=== PATIENT | female | born 1990 | race Two or more races ===

== ENCOUNTER 2019-03-21 18:22 | Emergency (ER) | payer SELFPAY | END 2019-03-21 18:30 | disposition left against medical advice (07) | LOC: EMS 18:24 | DX: R51 Headache (principal); Z53.21 Procedure and treatment not carried out due to patient leaving prior to being seen by health care provider ==

== ENCOUNTER 2019-03-21 20:54 | Emergency (ER) | payer MEDICAID, OTHER ==
[~2019-03-21] VITALS: Ht 149.9 cm; Wt 65.9 kg
[2019-03-22 02:14] VITALS: BP 147/94
[2019-03-22] MEDS ORDERED: DiphenhydrAMINE HCL 50 MG/ML VIAL IVP ONE (04:00)
[2019-03-22] MEDS ORDERED: ONDANSETRON HCL 4 MG TABLET PO ONE (04:00)
[2019-03-22] MEDS ORDERED: SODIUM CHLORIDE 0.9% 1,000 ML IV ONE (04:00)
[2019-03-22] MEDS ORDERED: KETOROLAC TROMETHAMINE 30 MG/ML VIAL IVP ONE (04:00)
[2019-03-22] MEDS ORDERED: METOCLOPRAMIDE HCL 5 MG/ML 2 ML VIAL IVP ONE (04:00)
[2019-03-22] MEDS ORDERED: ACETAMINOPHEN 500 MG TABLET PO ONE (04:00)
[2019-03-22 04:14] LABS: BASOPHILS % (AUTO) 0.8 % (0.0-2.0); HEMATOCRIT 39.8 % (36-46); HEMOGLOBIN 13.3 g/dL (12.0-16.0); LYMPHOCYTES % (AUTO) 48.7 % (22.0-44.0); MEAN CORPUSCULAR HGB CONC 33.4 G/dL (31.0-37.0); MEAN CORPUSCULAR VOLUME 87 fL (80-100); MONOCYTES # (AUTO) 0.7 K/uL (0.1-1.0); MONOCYTES % (AUTO) 7.9 % (2.0-9.0); NEUTROPHILS # (AUTO) 3.2 K/uL (1.8-7.7); NEUTROPHILS % (AUTO) 38.6 % (40.0-70.0); PLATELET COUNT (AUTO) 350 K/uL (150-450); RED BLOOD CELL COUNT(AUTO) 4.58 MIL/uL (4.00-5.20); RED CELL DISTRIBUTION WIDTH 13.1 % (11.5-14.5)
[2019-03-22 04:24] LABS: ANION GAP 6 mmol/L (8-16); CALCIUM, TOTAL 8.4 mg/dL (8.8-10.5); CARBON DIOXIDE 30 mmol/L (22-29); CHLORIDE 102 mmol/L (98-107); CREATININE 0.71 mg/dL (0.60-1.30); GLOMERULAR FILTR. RATE CALC > 60 mL/min (>60); GLUCOSE,RANDOM 91 mg/dL (70-110); POTASSIUM 3.2 mmol/L (3.5-5.1); SODIUM SERUM 138 mmol/L (136-145); UREA NITROGEN, BLOOD 7 mg/dL (7-18)
[2019-03-22 04:33] LABS: ALANINE AMINOTRANSFERASE 21 U/L (12-78); ALBUMIN 3.7 g/dL (3.4-5.0); ALKALINE PHOSPHATASE 70 U/L (46-116); ASPARTATE AMINOTRANSFERASE 16 U/L (15-37); BILIRUBIN,TOTAL 0.3 mg/dL (0.1-1.0); HCG,QUANTITATIVE < 1 mIU/mL (0-6); TOTAL PROTEIN, SERUM 6.8 g/dL (6.4-8.2)
== END 2019-03-22 04:30 | disposition left against medical advice (07) ==
LOC: EMS 20:55
DX: G43.909 Migraine, unspecified, not intractable, without status migrainosus (principal); F17.210 Nicotine dependence, cigarettes, uncomplicated; Z90.89 Acquired absence of other organs
CPT/HCPCS: 36415; 80053; 84702; 85025; 96374; 96375; 99283; 99406; J1200; J1885; J2765; J7030; Q0162

== ENCOUNTER 2019-05-17 13:19 | Inpatient (IN) | payer MEDICAID, OTHER ==
[~2019-05-17] VITALS: Ht 149.9 cm; Wt 59.9 kg
[2019-05-17] MEDS ORDERED: CHOL10002 PO (13:25)
[2019-05-17 14:43] LABS: BASOPHILS % (AUTO) 0.7 % (0.0-2.0); EOSINOPHILS % (AUTO) 4.8 % (1.0-6.0); HEMATOCRIT 38.7 % (36-46); HEMOGLOBIN 12.8 g/dL (12.0-16.0); LYMPHOCYTES # (AUTO) 3.3 K/uL (1.0-4.8); MEAN CORPUSCULAR HEMOGLOBIN 29.2 pg (26.0-34.0); MEAN CORPUSCULAR HGB CONC 33.2 G/dL (31.0-37.0); MEAN CORPUSCULAR VOLUME 88 fL (80-100); MONOCYTES # (AUTO) 0.7 K/uL (0.1-1.0); MONOCYTES % (AUTO) 8.5 % (2.0-9.0); NEUTROPHILS # (AUTO) 4.2 K/uL (1.8-7.7); PLATELET COUNT (AUTO) 326 K/uL (150-450); RED CELL DISTRIBUTION WIDTH 13.7 % (11.5-14.5)
[2019-05-17 14:53] LABS: ANION GAP 6 mmol/L (8-16); CALCIUM, TOTAL 8.6 mg/dL (8.8-10.5); CARBON DIOXIDE 28 mmol/L (22-29); CHLORIDE 104 mmol/L (98-107); CREATININE 0.69 mg/dL (0.60-1.30); GLOMERULAR FILTR. RATE CALC > 60 mL/min (>60); GLUCOSE,RANDOM 111 mg/dL (70-110); POTASSIUM 3.6 mmol/L (3.5-5.1); SODIUM SERUM 138 mmol/L (136-145); UREA NITROGEN, BLOOD 14 mg/dL (7-18)
[2019-05-17 15:06] LABS: ALANINE AMINOTRANSFERASE 25 U/L (12-78); ALBUMIN 3.6 g/dL (3.4-5.0); ALKALINE PHOSPHATASE 65 U/L (46-116); ASPARTATE AMINOTRANSFERASE 15 U/L (15-37); BILIRUBIN,TOTAL 0.2 mg/dL (0.1-1.0); HCG,QUANTITATIVE < 1 mIU/mL (0-6); TOTAL PROTEIN, SERUM 6.9 g/dL (6.4-8.2)
[2019-05-17] MEDS ORDERED: PROMETHAZINE HCL 25 MG TABLET PO PRN (15:30)
[2019-05-17] MEDS ORDERED: MAGNESIUM HYDROXIDE SUSPENSION 30 ML UDCUP PO PRN (15:30)
[2019-05-17] MEDS ORDERED: TUBERCULIN, PURIFIED PROTEIN DERIVATIVE 5 TU/0.1 ML SYRINGE ID ONE (15:30)
[2019-05-17] MEDS ORDERED: ACETAMINOPHEN 325 MG TABLET PO PRN (15:30)
[2019-05-17] MEDS ORDERED: HydrOXYzine PAMOATE 50 MG CAPSULE PO PRN (15:30)
[2019-05-17] MEDS ORDERED: GuaiFENesin/D-METHORPHAN [SUGAR-FREE] 200-20MG/10 ML SYRUP UDCUP PO PRN (15:30)
[2019-05-17] MEDS ORDERED: MAG HYDROX/AL HYDROX/SIMETH ES 30 ML SUSPENSION UDCUP PO PRN (15:30)
[2019-05-17] MEDS ORDERED: QUEtiapine FUMARATE 100 MG TABLET PO PRN (15:30)
[2019-05-17] MEDS ORDERED: ZOLPIDEM TARTRATE 10 MG TABLET PO PRN (15:30)
[2019-05-17] MEDS ORDERED: LOPERAMIDE HCL 2 MG CAPSULE PO PRN (15:30)
[2019-05-17 16:17] LABS: AMPHET/METH SCREEN,URINE NEGATIVE (NEGATIVE); BARBITURATE SCREEN, URINE NEGATIVE (NEGATIVE); BENZODIAZEPINES SCREEN,URINE NEGATIVE (NEGATIVE); CANNABINOID SCREEN,URINE NEGATIVE (NEGATIVE); COCAINE SCREEN,URINE NEGATIVE (NEGATIVE); METHADONE SCREEN, URINE NEGATIVE (NEGATIVE); OPIATE SCREEN,URINE NEGATIVE (NEGATIVE)
[2019-05-17 16:18] LABS: PHENCYCLIDINE SCREEN,URINE NEGATIVE (NEGATIVE)
[2019-05-17] MEDS: THIAMINE HCL 100 MG TABLET PO SCH (18:02)
[2019-05-17 21:01] VITALS: BP 147/82
[2019-05-17] MEDS: PRAZOSIN HCL 1 MG CAPSULE PO SCH (21:09)
[2019-05-17] MEDS ORDERED: INFLUENZA VIRUS VACCINE QVS 2019-20 (3YR+)/PF 60 MCG/0.5 ML SYRINGE IM ONE (21:45)
[2019-05-18 07:03] VITALS: BP 116/65
[2019-05-18 07:25] LABS: BASOPHILS % (AUTO) 0.9 % (0.0-2.0); HEMATOCRIT 36.5 % (36-46); HEMOGLOBIN 12.3 g/dL (12.0-16.0); LYMPHOCYTES % (AUTO) 50.4 % (22.0-44.0); MEAN CORPUSCULAR HEMOGLOBIN 29.5 pg (26.0-34.0); MEAN CORPUSCULAR HGB CONC 33.7 G/dL (31.0-37.0); MEAN CORPUSCULAR VOLUME 88 fL (80-100); MONOCYTES # (AUTO) 0.5 K/uL (0.1-1.0); MONOCYTES % (AUTO) 8.8 % (2.0-9.0); NEUTROPHILS # (AUTO) 2.1 K/uL (1.8-7.7); NEUTROPHILS % (AUTO) 34.9 % (40.0-70.0); PLATELET COUNT (AUTO) 311 K/uL (150-450); RED BLOOD CELL COUNT(AUTO) 4.17 MIL/uL (4.00-5.20); RED CELL DISTRIBUTION WIDTH 13.3 % (11.5-14.5)
[2019-05-18 07:47] LABS: ALANINE AMINOTRANSFERASE 24 U/L (12-78); ALBUMIN 3.3 g/dL (3.4-5.0); ALKALINE PHOSPHATASE 58 U/L (46-116); ANION GAP 5 mmol/L (8-16); ASPARTATE AMINOTRANSFERASE 14 U/L (15-37); BILIRUBIN,TOTAL 0.4 mg/dL (0.1-1.0); CALCIUM, TOTAL 8.3 mg/dL (8.8-10.5); CARBON DIOXIDE 27 mmol/L (22-29); CHLORIDE 105 mmol/L (98-107); CHOL/HDL RATIO 3.1 (3.9-5.7); CHOLESTEROL 183 mg/dL (131-200); CREATININE 0.72 mg/dL (0.60-1.30); FREE T4 (FREE THYROXINE) 1.14 ng/dL (0.76-1.46); GLOMERULAR FILTR. RATE CALC > 60 mL/min (>60); GLUCOSE,RANDOM 91 mg/dL (70-110); HDL CHOLESTEROL 59 mg/dL (40-60); LDL CHOL (CALC.) 116 mg/dL (0-130); POTASSIUM 3.8 mmol/L (3.5-5.1); SODIUM SERUM 137 mmol/L (136-145); THYROID STIMULATING HORMONE 1.11 uIU/mL (0.36-3.74); TOTAL PROTEIN, SERUM 6.3 g/dL (6.4-8.2); TRIGLYCERIDES 41 mg/dL (15-150); UREA NITROGEN, BLOOD 10 mg/dL (7-18)
[2019-05-18 07:53] LABS: HEMOGLOBIN A1C 5.7 % (3.8-5.6)
[2019-05-18] MEDS: MULTIVITAMINS WITH MINERALS, THERAPEUTIC TABLET PO SCH (08:19)
[2019-05-18] MEDS: FLUoxetine HCL 20 MG CAPSULE PO SCH (08:19)
[2019-05-18] MEDS: THIAMINE HCL 100 MG TABLET PO SCH ×2 (08:19→16:38)
[2019-05-18] MEDS: FOLIC ACID 1 MG TABLET PO SCH (08:19)
[2019-05-18 08:56] VITALS: BP 130/68
[2019-05-18] MEDS: LORazepam 2 MG TABLET PO PRN (09:03)
[2019-05-18] MEDS: NALTREXONE HCL 50 MG TABLET PO SCH (09:29)
[2019-05-18] MEDS: CHOLECALCIFEROL (VIT D3) 1,000 UNITS TABLET PO SCH (13:01)
[2019-05-18 16:41] VITALS: BP 127/72
[2019-05-18 21:23] VITALS: BP 130/82
[2019-05-18] MEDS: PRAZOSIN HCL 1 MG CAPSULE PO SCH (21:23)
[2019-05-19 03:29] VITALS: BP 124/70
[2019-05-19] MEDS: NALTREXONE HCL 50 MG TABLET PO SCH (09:04)
[2019-05-19] MEDS: FLUoxetine HCL 20 MG CAPSULE PO SCH (09:04)
[2019-05-19] MEDS: FOLIC ACID 1 MG TABLET PO SCH (09:04)
[2019-05-19] MEDS: THIAMINE HCL 100 MG TABLET PO SCH ×2 (09:04→16:34)
[2019-05-19] MEDS: CHOLECALCIFEROL (VIT D3) 1,000 UNITS TABLET PO SCH (09:04)
[2019-05-19] MEDS: GABAPENTIN 100 MG CAPSULE PO SCH ×3 (09:04→16:33)
[2019-05-19] MEDS: MULTIVITAMINS WITH MINERALS, THERAPEUTIC TABLET PO SCH (09:04)
[2019-05-19 09:48] VITALS: BP 132/74
[2019-05-19] MEDS: LORazepam 2 MG TABLET PO PRN (09:53)
[2019-05-19] MEDS ORDERED: GABA-529 PO (14:28)
[2019-05-19] MEDS ORDERED: PRAZ1 PO (14:28)
[2019-05-19] MEDS ORDERED: NALT50TA PO (14:28)
[2019-05-19] MEDS ORDERED: FLUO-191 PO (14:28)
[2019-05-19 17:49] VITALS: BP 138/83
[2019-05-19] MEDS: PRAZOSIN HCL 1 MG CAPSULE PO SCH (20:58)
[2019-05-20] MEDS: GABAPENTIN 100 MG CAPSULE PO SCH ×3 (08:47→16:36)
[2019-05-20] MEDS: NALTREXONE HCL 50 MG TABLET PO SCH (08:47)
[2019-05-20] MEDS: FLUoxetine HCL 20 MG CAPSULE PO SCH (08:47)
[2019-05-20] MEDS: CHOLECALCIFEROL (VIT D3) 1,000 UNITS TABLET PO SCH (08:47)
[2019-05-20] MEDS: MULTIVITAMINS WITH MINERALS, THERAPEUTIC TABLET PO SCH (08:47)
[2019-05-20] MEDS: FOLIC ACID 1 MG TABLET PO SCH (08:48)
[2019-05-20] MEDS: THIAMINE HCL 100 MG TABLET PO SCH ×2 (08:49→16:36)
[2019-05-20 09:54] VITALS: BP 132/91
[2019-05-20 16:00] VITALS: BP 129/85
[2019-05-20] MEDS ORDERED: GABAPENTIN 300 MG CAPSULE PO SCH (17:00)
[2019-05-20 21:10] VITALS: BP 127/67
[2019-05-20] MEDS: PRAZOSIN HCL 1 MG CAPSULE PO SCH (21:11)
[2019-05-21 04:53] VITALS: BP 122/77
[2019-05-21] MEDS: FOLIC ACID 1 MG TABLET PO SCH (08:41)
[2019-05-21] MEDS: CHOLECALCIFEROL (VIT D3) 1,000 UNITS TABLET PO SCH (08:41)
[2019-05-21] MEDS: THIAMINE HCL 100 MG TABLET PO SCH (08:41)
[2019-05-21] MEDS: MULTIVITAMINS WITH MINERALS, THERAPEUTIC TABLET PO SCH (08:41)
[2019-05-21] MEDS: NALTREXONE HCL 50 MG TABLET PO SCH (08:41)
[2019-05-21] MEDS ORDERED: GABAPENTIN 300 MG CAPSULE PO SCH (09:00)
[2019-05-21] MEDS ORDERED: FLUoxetine HCL 20 MG CAPSULE PO SCH (09:00)
== END 2019-05-21 10:00 | disposition home or self-care (01) | DRG 885 ==
LOC: EMS 13:21 → 3EI 16:29 → 3EC 20:45 → 3EI 05-20 21:15
PROVIDERS: ADMIT Psychiatry & Neurology Psychiatry; ATTEND Psychiatry & Neurology Psychiatry
DX: F33.2 Major depressive disorder, recurrent severe without psychotic features (principal); R45.851 Suicidal ideations; G43.909 Migraine, unspecified, not intractable, without status migrainosus; F17.210 Nicotine dependence, cigarettes, uncomplicated; F43.10 Post-traumatic stress disorder, unspecified; E55.9 Vitamin D deficiency, unspecified; F11.90 Opioid use, unspecified, uncomplicated; F19.10 Other psychoactive substance abuse, uncomplicated; X58.XXXA Exposure to other specified factors, initial encounter; Z59.0 Homelessness; Z91.19 Patient's noncompliance with other medical treatment and regimen; Z90.49 Acquired absence of other specified parts of digestive tract; Z98.84 Bariatric surgery status; Z23 Encounter for immunization
CPT/HCPCS: 82306; 83036; 84439; 84443; 86592; 90686; 93005; G0480

== ENCOUNTER 2020-09-28 21:26 | Inpatient (IN) | payer MEDICAID, OTHER ==
[~2020-09-28] VITALS: Ht 149.9 cm; Wt 70.8 kg
[~2020-09-28 21:26] MED LIST: CHOL10002 PO; FLUO-191 PO; GABA-529 PO; NALT50TA PO; PRAZ1 PO
[2020-09-29 00:34] LABS: EOSINOPHILS % (AUTO) 0.8 % (1.0-6.0); HEMATOCRIT 40.5 % (36-46); HEMOGLOBIN 13.4 g/dL (12.0-16.0); LYMPHOCYTES # (AUTO) 3.5 K/uL (1.0-4.8); LYMPHOCYTES % (AUTO) 34.5 % (22.0-44.0); MEAN CORPUSCULAR HEMOGLOBIN 27.3 pg (26.0-34.0); MEAN CORPUSCULAR VOLUME 83 fL (80-100); MONOCYTES % (AUTO) 9.3 % (2.0-9.0); NEUTROPHILS # (AUTO) 5.6 K/uL (1.8-7.7); NEUTROPHILS % (AUTO) 54.4 % (40.0-70.0); PLATELET COUNT (AUTO) 372 K/uL (150-450); RED CELL DISTRIBUTION WIDTH 15.3 % (11.5-14.5)
[2020-09-29 00:44] LABS: ANION GAP 11 mmol/L (8-16); CARBON DIOXIDE 23 mmol/L (22-29); CHLORIDE 104 mmol/L (98-107); CREATININE 0.59 mg/dL (0.60-1.30); GLOMERULAR FILTR. RATE CALC > 60 mL/min (>60); GLUCOSE,RANDOM 97 mg/dL (70-110); POTASSIUM 3.5 mmol/L (3.5-5.1); SODIUM SERUM 138 mmol/L (136-145); UREA NITROGEN, BLOOD 10 mg/dL (7-18)
[2020-09-29 00:48] LABS: COVID AG,FIA SOURCE NASOPHARYNGEAL
[2020-09-29 00:51] LABS: ALANINE AMINOTRANSFERASE 39 U/L (12-78); ALBUMIN 3.7 g/dL (3.4-5.0); ALKALINE PHOSPHATASE 96 U/L (46-116); ASPARTATE AMINOTRANSFERASE 26 U/L (15-37); BILIRUBIN,TOTAL 0.6 mg/dL (0.1-1.0); TOTAL PROTEIN, SERUM 8.2 g/dL (6.4-8.2)
[2020-09-29] MEDS ORDERED: PNEUMOCOCCAL VACCINE POLYVALENT 0.5 ML VIAL [PPSV23] IM. ONE (03:30)
[2020-09-29 03:56] VITALS: BP 158/96
[2020-09-29] MEDS: LORazepam 2 MG TABLET PO PRN ×3 (04:06→18:49)
[2020-09-29] MEDS: HALOPERIDOL 5 MG TABLET PO PRN ×2 (04:06→18:49)
[2020-09-29] MEDS ORDERED: LOPERAMIDE HCL 2 MG CAPSULE PO PRN (07:15)
[2020-09-29] MEDS ORDERED: IBUPROFEN 400 MG TABLET PO PRN (07:15)
[2020-09-29] MEDS ORDERED: DOCUSATE SODIUM 100 MG CAPSULE PO PRN (07:15)
[2020-09-29] MEDS ORDERED: CloNIDine HCL 0.1 MG TABLET PO PRN (07:15)
[2020-09-29] MEDS ORDERED: PETROLATUM,WHITE 28 GM JELLY TP PRN (07:15)
[2020-09-29] MEDS ORDERED: GuaiFENesin/D-METHORPHAN [SUGAR-FREE] 200-20MG/10 ML SYRUP UDCUP PO PRN (07:15)
[2020-09-29] MEDS ORDERED: MAGNESIUM HYDROXIDE SUSPENSION 30 ML UDCUP PO PRN (07:15)
[2020-09-29] MEDS ORDERED: ACETAMINOPHEN 325 MG TABLET PO PRN (07:15)
[2020-09-29] MEDS ORDERED: ONDANSETRON HCL 4 MG TABLET PO PRN (07:15)
[2020-09-29] MEDS ORDERED: MAG HYDROX/AL HYDROX/SIMETH ES 30 ML SUSPENSION UDCUP PO PRN (07:15)
[2020-09-29 08:30] VITALS: BP 150/97
[2020-09-29] MEDS: AmLODIPine BESYLATE 5 MG TABLET PO SCH (08:34)
[2020-09-29] MEDS: CHOLECALCIFEROL (VIT D3) 1,000 UNITS [25 MCG] TABLET PO SCH (08:34)
[2020-09-29] MEDS: GABAPENTIN 100 MG CAPSULE PO SCH (17:12)
[2020-09-29] MEDS: NICOTINE 14 MG/24 HOUR PATCH TD PRN (18:49)
[2020-09-29] MEDS: ZOLPIDEM TARTRATE 10 MG TABLET PO PRN (20:39)
[2020-09-30 00:05] VITALS: BP 141/93
[2020-09-30] MEDS: LORazepam 2 MG TABLET PO PRN ×3 (01:21→14:28)
[2020-09-30] MEDS: FLUoxetine HCL 20 MG CAPSULE PO SCH (09:08)
[2020-09-30] MEDS: GABAPENTIN 100 MG CAPSULE PO SCH (09:08)
[2020-09-30] MEDS: CHOLECALCIFEROL (VIT D3) 1,000 UNITS [25 MCG] TABLET PO SCH (09:08)
[2020-09-30] MEDS: AmLODIPine BESYLATE 5 MG TABLET PO SCH (09:08)
[2020-09-30 10:23] VITALS: BP 112/77
[2020-09-30] MEDS: ALBUTEROL SULFATE HFA 90 MCG/PUFF 8 GM INHALER IH PRN (14:28)
[2020-09-30 16:06] VITALS: BP 129/76
[2020-09-30] MEDS: GABAPENTIN 300 MG CAPSULE PO SCH (16:50)
[2020-09-30] MEDS: ZOLPIDEM TARTRATE 10 MG TABLET PO PRN (21:31)
[2020-10-01 00:06] VITALS: BP 140/83
[2020-10-01] MEDS: LORazepam 2 MG TABLET PO PRN ×3 (04:21→20:35)
[2020-10-01] MEDS: CHOLECALCIFEROL (VIT D3) 1,000 UNITS [25 MCG] TABLET PO SCH (08:17)
[2020-10-01] MEDS: FLUoxetine HCL 20 MG CAPSULE PO SCH (08:17)
[2020-10-01] MEDS: GABAPENTIN 300 MG CAPSULE PO SCH ×2 (08:17→16:39)
[2020-10-01] MEDS: AmLODIPine BESYLATE 5 MG TABLET PO SCH (08:17)
[2020-10-01 08:18] VITALS: BP 136/82
[2020-10-01] MEDS: NICOTINE 14 MG/24 HOUR PATCH TD PRN (12:54)
[2020-10-01 16:05] VITALS: BP 135/82
[2020-10-02 00:07] VITALS: BP 106/62
[2020-10-02] MEDS: GABAPENTIN 300 MG CAPSULE PO SCH (08:32)
[2020-10-02] MEDS: LORazepam 2 MG TABLET PO PRN (08:33)
[2020-10-02] MEDS: CHOLECALCIFEROL (VIT D3) 1,000 UNITS [25 MCG] TABLET PO SCH (08:33)
[2020-10-02] MEDS: AmLODIPine BESYLATE 5 MG TABLET PO SCH (08:33)
[2020-10-02] MEDS: NICOTINE 14 MG/24 HOUR PATCH TD PRN (08:34)
[2020-10-02] MEDS: ALBUTEROL SULFATE HFA 90 MCG/PUFF 8 GM INHALER IH PRN (08:35)
[2020-10-02 08:47] VITALS: BP 132/78
[2020-10-02] MEDS ORDERED: FLUoxetine HCL 20 MG CAPSULE PO SCH (09:00)
[2020-10-02] MEDS ORDERED: FLUO20CA36 PO (10:45)
[2020-10-02] MEDS ORDERED: GABA-1181 PO (10:45)
[2020-10-02] MEDS ORDERED: AMLO-257 PO (10:46)
== END 2020-10-02 14:18 | disposition home or self-care (01) | DRG 754 ==
LOC: EMS 21:36 → B2S 09-29 01:51
PROVIDERS: ADMIT Psychiatry & Neurology Child & Adolescent Psychiatry; ATTEND Psychiatry & Neurology Child & Adolescent Psychiatry
DX: F32.9 Major depressive disorder, single episode, unspecified (principal); R45.851 Suicidal ideations; Z91.14 Patient's other noncompliance with medication regimen; E56.9 Vitamin deficiency, unspecified; Z20.822 Contact with and (suspected) exposure to COVID-19; E78.5 Hyperlipidemia, unspecified; F17.200 Nicotine dependence, unspecified, uncomplicated; F41.0 Panic disorder [episodic paroxysmal anxiety]; F41.1 Generalized anxiety disorder; G43.909 Migraine, unspecified, not intractable, without status migrainosus; I10 Essential (primary) hypertension; Z98.84 Bariatric surgery status
CPT/HCPCS: 80053; 80061; 83036; 85025; 87081; 90732; 99285; G0480; J3535; Q0162

== ENCOUNTER 2020-12-05 01:45 | Inpatient (IN) | payer MEDICAID, OTHER ==
[~2020-12-05] VITALS: Ht 149.9 cm; Wt 71.0 kg
[~2020-12-05 01:45] MED LIST changes: +AMLO-257 PO; -CHOL10002 PO; -FLUO-191 PO; +FLUO20CA36 PO; +GABA-1181 PO; -GABA-529 PO; -NALT50TA PO; -PRAZ1 PO
[2020-12-05 02:04] LABS: COVID AG,FIA SOURCE NASOPHARYNGEAL
[2020-12-05] MEDS ORDERED: OLANZapine 5 MG RAPDIS TABLET PO PRN (03:00)
[2020-12-05] MEDS ORDERED: ZOLPIDEM TARTRATE 10 MG TABLET PO PRN (03:00)
[2020-12-05] MEDS: LORazepam 2 MG TABLET PO PRN (08:45)
[2020-12-06 00:42] VITALS: BP 134/66
[2020-12-06] MEDS ORDERED: -PHARMACY VACCINE NOTE- MISC ONE (04:45)
[2020-12-06] MEDS ORDERED: GuaiFENesin/D-METHORPHAN [SUGAR-FREE] 200-20MG/10 ML SYRUP UDCUP PO PRN (08:00)
[2020-12-06] MEDS ORDERED: LOPERAMIDE HCL 2 MG CAPSULE PO PRN (08:00)
[2020-12-06] MEDS ORDERED: MAG HYDROX/AL HYDROX/SIMETH ES 30 ML SUSPENSION UDCUP PO PRN (08:00)
[2020-12-06] MEDS ORDERED: TUBERCULIN, PURIFIED PROTEIN DERIVATIVE 5 TU/0.1 ML SYRINGE ID ONE (08:00)
[2020-12-06] MEDS ORDERED: PROMETHAZINE HCL 25 MG TABLET PO PRN (08:00)
[2020-12-06] MEDS ORDERED: MAGNESIUM HYDROXIDE SUSPENSION 30 ML UDCUP PO PRN (08:00)
[2020-12-06] MEDS ORDERED: HydrOXYzine PAMOATE 50 MG CAPSULE PO PRN (08:00)
[2020-12-06 08:18] VITALS: BP 138/85
[2020-12-06] MEDS: FLUoxetine HCL 20 MG CAPSULE PO SCH (08:58)
[2020-12-06] MEDS: NALTREXONE HCL 50 MG TABLET PO SCH (08:59)
[2020-12-06] MEDS: FOLIC ACID 1 MG TABLET PO SCH (08:59)
[2020-12-06] MEDS: OMEGA-3/DHA/EPA/FISH OIL 1,000 MG CAPSULE PO SCH (08:59)
[2020-12-06] MEDS: GABAPENTIN 300 MG CAPSULE PO SCH ×3 (08:59→17:00)
[2020-12-06] MEDS: MULTIVITAMINS WITH MINERALS, THERAPEUTIC TABLET PO SCH (08:59)
[2020-12-06] MEDS: THIAMINE 100 MG TABLET PO SCH ×2 (09:00→17:00)
[2020-12-06] MEDS: LORazepam 2 MG TABLET PO PRN (09:20)
[2020-12-06 16:40] VITALS: BP 132/78
[2020-12-06] MEDS: MELATONIN 5 MG TABLET PO SCH (20:25)
[2020-12-06] MEDS: PRAZOSIN HCL 1 MG CAPSULE PO SCH (20:25)
[2020-12-07 01:20] VITALS: BP 150/93
[2020-12-07] MEDS: LORazepam 2 MG TABLET PO PRN ×2 (01:29→10:49)
[2020-12-07 08:28] LABS: CHOL/HDL RATIO 5.6 (3.9-5.7)
[2020-12-07 08:45] VITALS: BP 112/68
[2020-12-07] MEDS: FOLIC ACID 1 MG TABLET PO SCH (08:54)
[2020-12-07] MEDS: OMEGA-3/DHA/EPA/FISH OIL 1,000 MG CAPSULE PO SCH (08:54)
[2020-12-07] MEDS: THIAMINE 100 MG TABLET PO SCH ×2 (08:54→16:44)
[2020-12-07] MEDS: NALTREXONE HCL 50 MG TABLET PO SCH (08:54)
[2020-12-07] MEDS: MULTIVITAMINS WITH MINERALS, THERAPEUTIC TABLET PO SCH (08:54)
[2020-12-07] MEDS: GABAPENTIN 300 MG CAPSULE PO SCH ×2 (08:54→13:00)
[2020-12-07] MEDS: FLUoxetine HCL 20 MG CAPSULE PO SCH (08:54)
[2020-12-07] MEDS: NICOTINE 21 MG/24 HOUR PATCH TD SCH (10:41)
[2020-12-07 16:35] VITALS: BP 132/91
[2020-12-07] MEDS: GABAPENTIN 400 MG CAPSULE PO SCH (16:44)
[2020-12-07] MEDS: PRAZOSIN HCL 1 MG CAPSULE PO SCH (21:05)
[2020-12-07] MEDS: MELATONIN 5 MG TABLET PO SCH (21:05)
[2020-12-08 01:03] VITALS: BP 123/75
[2020-12-08 04:28] VITALS: BP 131/89
[2020-12-08] MEDS: ACETAMINOPHEN 325 MG TABLET PO PRN ×2 (04:38→08:50)
[2020-12-08] MEDS: LORazepam 2 MG TABLET PO PRN ×3 (04:38→16:46)
[2020-12-08 07:51] LABS: BASOPHILS % (AUTO) 0.4 % (0.0-2.0); EOSINOPHILS % (AUTO) 0.2 % (1.0-6.0); HEMATOCRIT 40.3 % (36-46); HEMOGLOBIN 13.2 g/dL (12.0-16.0); LYMPHOCYTES # (AUTO) 2.7 K/uL (1.0-4.8); LYMPHOCYTES % (AUTO) 30.4 % (22.0-44.0); MEAN CORPUSCULAR HEMOGLOBIN 26.5 pg (26.0-34.0); MEAN CORPUSCULAR HGB CONC 32.8 G/dL (31.0-37.0); MEAN CORPUSCULAR VOLUME 81 fL (80-100); MONOCYTES # (AUTO) 1.1 K/uL (0.1-1.0); MONOCYTES % (AUTO) 12.7 % (2.0-9.0); NEUTROPHILS % (AUTO) 56.3 % (40.0-70.0); PLATELET COUNT (AUTO) 401 K/uL (150-450); RED BLOOD CELL COUNT(AUTO) 4.98 MIL/uL (4.00-5.20); RED CELL DISTRIBUTION WIDTH 14.2 % (11.5-14.5)
[2020-12-08 07:56] LABS: HEMOGLOBIN A1C 5.5 % (3.8-5.6)
[2020-12-08 08:17] LABS: ALANINE AMINOTRANSFERASE 22 U/L (12-78); ALBUMIN 3.5 g/dL (3.4-5.0); ALKALINE PHOSPHATASE 90 U/L (46-116); ANION GAP 12 mmol/L (8-16); ASPARTATE AMINOTRANSFERASE 26 U/L (15-37); BILIRUBIN,TOTAL 0.7 mg/dL (0.1-1.0); CALCIUM, TOTAL 8.4 mg/dL (8.8-10.5); CARBON DIOXIDE 25 mmol/L (22-29); CHLORIDE 104 mmol/L (98-107); CHOL/HDL RATIO 5.5 (3.9-5.7); CHOLESTEROL 230 mg/dL (131-200); CREATININE 0.85 mg/dL (0.60-1.30); FREE T4 (FREE THYROXINE) 1.29 ng/dL (0.76-1.46); GLOMERULAR FILTR. RATE CALC > 60 mL/min (>60); GLUCOSE,RANDOM 102 mg/dL (70-110); HCG,QUANTITATIVE < 1 mIU/mL (0-6); HDL CHOLESTEROL 42 mg/dL (40-60); LDL CHOL (CALC.) 175 mg/dL (0-130); POTASSIUM 3.3 mmol/L (3.5-5.1); SODIUM SERUM 141 mmol/L (136-145); THYROID STIMULATING HORMONE 0.07 uIU/mL (0.36-3.74); TOTAL PROTEIN, SERUM 7.5 g/dL (6.4-8.2); TRIGLYCERIDES 65 mg/dL (15-150); UREA NITROGEN, BLOOD 16 mg/dL (7-18)
[2020-12-08] MEDS: FOLIC ACID 1 MG TABLET PO SCH (08:39)
[2020-12-08] MEDS: OMEGA-3/DHA/EPA/FISH OIL 1,000 MG CAPSULE PO SCH (08:39)
[2020-12-08] MEDS: THIAMINE 100 MG TABLET PO SCH ×2 (08:39→16:16)
[2020-12-08] MEDS: NALTREXONE HCL 50 MG TABLET PO SCH (08:39)
[2020-12-08] MEDS: GABAPENTIN 400 MG CAPSULE PO SCH ×3 (08:39→16:16)
[2020-12-08] MEDS: FLUoxetine HCL 20 MG CAPSULE PO SCH (08:39)
[2020-12-08] MEDS: MULTIVITAMINS WITH MINERALS, THERAPEUTIC TABLET PO SCH (08:39)
[2020-12-08] MEDS: NICOTINE 21 MG/24 HOUR PATCH TD SCH (08:39)
[2020-12-08 08:43] VITALS: BP 149/89
[2020-12-08 08:51] VITALS: BP 149/89
[2020-12-08] MEDS ORDERED: POTASSIUM CHLORIDE 20 MEQ ER TABLET PO ONE ×2 (09:15→21:00)
[2020-12-08] MEDS: ATORVASTATIN CALCIUM 40 MG TABLET PO SCH (10:43)
[2020-12-08 16:26] VITALS: BP 107/66
[2020-12-08] MEDS: MELATONIN 5 MG TABLET PO SCH (20:08)
[2020-12-08] MEDS: PRAZOSIN HCL 1 MG CAPSULE PO SCH (20:08)
[2020-12-09 00:57] VITALS: BP 130/84
[2020-12-09] MEDS: LORazepam 2 MG TABLET PO PRN ×3 (07:04→20:15)
[2020-12-09 08:13] VITALS: BP 124/73
[2020-12-09] MEDS: MULTIVITAMINS WITH MINERALS, THERAPEUTIC TABLET PO SCH (09:02)
[2020-12-09] MEDS: GABAPENTIN 400 MG CAPSULE PO SCH ×3 (09:02→16:20)
[2020-12-09] MEDS: OMEGA-3/DHA/EPA/FISH OIL 1,000 MG CAPSULE PO SCH (09:02)
[2020-12-09] MEDS: FLUoxetine HCL 20 MG CAPSULE PO SCH (09:02)
[2020-12-09] MEDS: THIAMINE 100 MG TABLET PO SCH ×2 (09:02→16:20)
[2020-12-09] MEDS: FOLIC ACID 1 MG TABLET PO SCH (09:02)
[2020-12-09] MEDS: NICOTINE 21 MG/24 HOUR PATCH TD SCH (09:03)
[2020-12-09] MEDS: ATORVASTATIN CALCIUM 40 MG TABLET PO SCH (09:03)
[2020-12-09] MEDS: NALTREXONE HCL 50 MG TABLET PO SCH (09:03)
[2020-12-09 11:02] LABS: ALANINE AMINOTRANSFERASE 16 U/L (12-78); ALBUMIN 3.7 g/dL (3.4-5.0); ALKALINE PHOSPHATASE 92 U/L (46-116); ANION GAP 12 mmol/L (8-16); ASPARTATE AMINOTRANSFERASE 16 U/L (15-37); BILIRUBIN,TOTAL 0.6 mg/dL (0.1-1.0); CALCIUM, TOTAL 8.5 mg/dL (8.8-10.5); CARBON DIOXIDE 24 mmol/L (22-29); CHLORIDE 107 mmol/L (98-107); CREATININE 0.76 mg/dL (0.60-1.30); GLOMERULAR FILTR. RATE CALC > 60 mL/min (>60); GLUCOSE,RANDOM 91 mg/dL (70-110); POTASSIUM 3.8 mmol/L (3.5-5.1); SODIUM SERUM 143 mmol/L (136-145); TOTAL PROTEIN, SERUM 7.6 g/dL (6.4-8.2); UREA NITROGEN, BLOOD 10 mg/dL (7-18)
[2020-12-09] MEDS: HYPROMELLOSE 0.5% 15 ML OPHTHALMIC SOLUTION OU PRN (12:46)
[2020-12-09 16:18] VITALS: BP 121/78
[2020-12-09] MEDS ORDERED: HydrOXYzine PAMOATE 25 MG CAPSULE PO ONE (19:15)
[2020-12-09] MEDS: MELATONIN 5 MG TABLET PO SCH (20:08)
[2020-12-09] MEDS: PRAZOSIN HCL 1 MG CAPSULE PO SCH (20:09)
[2020-12-10 01:21] VITALS: BP 126/75
[2020-12-10] MEDS: HydrOXYzine PAMOATE 25 MG CAPSULE PO SCH ×3 (08:04→16:12)
[2020-12-10] MEDS: FOLIC ACID 1 MG TABLET PO SCH (08:05)
[2020-12-10] MEDS: FLUoxetine HCL 20 MG CAPSULE PO SCH (08:05)
[2020-12-10] MEDS: OMEGA-3/DHA/EPA/FISH OIL 1,000 MG CAPSULE PO SCH (08:05)
[2020-12-10] MEDS: MULTIVITAMINS WITH MINERALS, THERAPEUTIC TABLET PO SCH (08:05)
[2020-12-10] MEDS: THIAMINE 100 MG TABLET PO SCH ×2 (08:05→16:12)
[2020-12-10] MEDS: ATORVASTATIN CALCIUM 40 MG TABLET PO SCH (08:05)
[2020-12-10] MEDS: NALTREXONE HCL 50 MG TABLET PO SCH (08:05)
[2020-12-10] MEDS: GABAPENTIN 400 MG CAPSULE PO SCH ×3 (08:05→16:12)
[2020-12-10] MEDS: NICOTINE 21 MG/24 HOUR PATCH TD SCH (08:06)
[2020-12-10] MEDS: HYPROMELLOSE 0.5% 15 ML OPHTHALMIC SOLUTION OU PRN (08:11)
[2020-12-10 08:23] VITALS: BP 103/75
[2020-12-10 09:15] VITALS: BP 125/84
[2020-12-10 09:24] LABS: AMPHET/METH SCREEN,URINE NEGATIVE (NEGATIVE); BARBITURATE SCREEN, URINE NEGATIVE (NEGATIVE); BENZODIAZEPINES SCREEN,URINE POSITIVE (NEGATIVE); CANNABINOID SCREEN,URINE POSITIVE (NEGATIVE); COCAINE SCREEN,URINE NEGATIVE (NEGATIVE); METHADONE SCREEN, URINE NEGATIVE (NEGATIVE); OPIATE SCREEN,URINE NEGATIVE (NEGATIVE)
[2020-12-10 09:26] LABS: APPEARANCE,URINE TURBID (CLEAR); GLUCOSE, URINE (UA) NEGATIVE (NEGATIVE); KETONES,URINE TRACE mg/dL (NEGATIVE); LEUKOCYTE ESTERASE ,URINE NEGATIVE (NEGATIVE); NITRATE,URINE NEGATIVE (NEGATIVE); OCCULT BLOOD,URINE NEGATIVE (NEGATIVE); PROTEIN,URINE NEGATIVE (NEGATIVE)
[2020-12-10 09:39] LABS: PHENCYCLIDINE SCREEN,URINE NEGATIVE (NEGATIVE)
[2020-12-10 09:41] LABS: BILIRUBIN,URINE PRELIM. POSITIVE (NEGATIVE)
[2020-12-10 09:50] LABS: RBC,URINE None Seen /HPF (0-2)
[2020-12-10 10:00] LABS: BACTERIA,URINE Few /HPF (None Seen); SQUAMOUS EPITHELIAL CELL,UR Few /LPF (None Seen)
[2020-12-10 10:02] LABS: CALCIUM OXALATE CRYSTALS,UR Rare /LPF (None Seen)
[2020-12-10] MEDS: LORazepam 2 MG TABLET PO PRN (12:13)
[2020-12-10] MEDS: ACETAMINOPHEN 325 MG TABLET PO PRN (13:25)
[2020-12-10] MEDS ORDERED: NICOTINE POLACRILEX 2 MG LOZENGE PO PRN (14:15)
[2020-12-10 16:19] VITALS: BP 110/67
== END 2020-12-10 19:05 | disposition left against medical advice (07) | DRG 751 ==
LOC: EMS 01:47 → B2S 18:15 → B3A 12-10 09:26
PROVIDERS: ADMIT Psychiatry & Neurology Psychiatry; ATTEND Psychiatry & Neurology Psychiatry
DX: F33.2 Major depressive disorder, recurrent severe without psychotic features (principal); R45.851 Suicidal ideations; F11.90 Opioid use, unspecified, uncomplicated; G43.909 Migraine, unspecified, not intractable, without status migrainosus; J44.9 Chronic obstructive pulmonary disease, unspecified; I10 Essential (primary) hypertension; F41.0 Panic disorder [episodic paroxysmal anxiety]; F15.90 Other stimulant use, unspecified, uncomplicated; F43.10 Post-traumatic stress disorder, unspecified; Z53.29 Procedure and treatment not carried out because of patient's decision for other reasons; T43.8X6A Underdosing of other psychotropic drugs, initial encounter; Z20.822 Contact with and (suspected) exposure to COVID-19; T50.992A Poisoning by other drugs, medicaments and biological substances, intentional self-harm, initial encounter; Y92.89 Other specified places as the place of occurrence of the external cause; Z90.49 Acquired absence of other specified parts of digestive tract; Z98.84 Bariatric surgery status; Z72.0 Tobacco use; Z91.51 Personal history of suicidal behavior
CPT/HCPCS: 80053; 80061; 81001; 83036; 84439; 84443; 84702; 85025; 86592; 93005; 99285; Q9967

== ENCOUNTER 2022-11-07 19:39 | Emergency (ER) | payer MEDICAID, OTHER ==
[~2022-11-07] VITALS: Ht 157.5 cm; Wt 65.0 kg
[2022-11-07 19:48] VITALS: BP 126/67; PULSE 86; RESP 17; TEMP 98.2
[2022-11-07 21:57] LABS: BASOPHILS % (AUTO) 1.3 % (0.0-2.0); EOSINOPHILS % (AUTO) 2.6 % (1.0-6.0); HEMATOCRIT 34.3 % (36-46); LYMPHOCYTES # (AUTO) 2.5 K/uL (1.0-4.8); LYMPHOCYTES % (AUTO) 71.2 % (22.0-44.0); MEAN CORPUSCULAR HEMOGLOBIN 26.3 pg (26.0-34.0); MEAN CORPUSCULAR VOLUME 82 fL (80-100); MONOCYTES # (AUTO) 0.8 K/uL (0.1-1.0); MONOCYTES % (AUTO) 21.3 % (2.0-9.0); NEUTROPHILS # (AUTO) 0.1 K/uL (1.8-7.7); NEUTROPHILS % (AUTO) 3.6 % (40.0-70.0); PLATELET COUNT (AUTO) 353 K/uL (150-450); RED BLOOD CELL COUNT(AUTO) 4.18 MIL/uL (4.00-5.20); RED CELL DISTRIBUTION WIDTH 15.3 % (11.5-14.5); WHITE BLOOD COUNT (AUTO) 3.5 K/uL (4.5-11.0)
[2022-11-07 21:57] LABS: COVID AG,FIA SOURCE NASOPHARYNGEAL
[2022-11-07 22:08] LABS: ANION GAP 10 mmol/L (8-16); CALCIUM, TOTAL 8.3 mg/dL (8.8-10.5); CARBON DIOXIDE 25 mmol/L (22-29); CHLORIDE 102 mmol/L (98-107); CREATININE 0.52 mg/dL (0.60-1.30); GLOMERULAR FILTR. RATE CALC > 60 mL/min (>60); GLUCOSE,RANDOM 100 mg/dL (70-110); POTASSIUM 3.1 mmol/L (3.5-5.1); SODIUM SERUM 137 mmol/L (136-145); UREA NITROGEN, BLOOD 10 mg/dL (7-18)
[2022-11-07 22:14] LABS: ALANINE AMINOTRANSFERASE 48 U/L (12-78); ALBUMIN 3.1 g/dL (3.4-5.0); ALKALINE PHOSPHATASE 71 U/L (46-116); ASPARTATE AMINOTRANSFERASE 48 U/L (15-37); BILIRUBIN,TOTAL 0.4 mg/dL (0.1-1.0); TOTAL PROTEIN, SERUM 6.4 g/dL (6.4-8.2)
[2022-11-07 22:14] LABS: SARS-COV2 (COVID) ANTIGEN,FIA Negative (Negative)
[2022-11-07 22:17] LABS: ALCOHOL, BLOOD (SERUM) < 3 mg/dL (0-10)
[2022-11-08 02:33] LABS: ALCOHOL, URINE DRUG SCREEN NEGATIVE (NEGATIVE); AMPHET/METH SCREEN,URINE POSITIVE (NEGATIVE); BARBITURATE SCREEN, URINE NEGATIVE (NEGATIVE); BENZODIAZEPINES SCREEN,URINE NEGATIVE (NEGATIVE); CANNABINOID SCREEN,URINE NEGATIVE (NEGATIVE); COCAINE SCREEN,URINE NEGATIVE (NEGATIVE); METHADONE SCREEN, URINE NEGATIVE (NEGATIVE); OPIATE SCREEN,URINE NEGATIVE (NEGATIVE); PHENCYCLIDINE SCREEN,URINE NEGATIVE (NEGATIVE)
== END 2022-11-07 23:53 | disposition home or self-care (01) ==
LOC: EMS 19:39
DX: S61.211A Laceration without foreign body of left index finger without damage to nail, initial encounter (principal); F32.A Depression, unspecified; F10.20 Alcohol dependence, uncomplicated; I10 Essential (primary) hypertension; G43.909 Migraine, unspecified, not intractable, without status migrainosus; F17.210 Nicotine dependence, cigarettes, uncomplicated; F15.90 Other stimulant use, unspecified, uncomplicated; F11.90 Opioid use, unspecified, uncomplicated; Z90.49 Acquired absence of other specified parts of digestive tract; Z98.890 Other specified postprocedural states; Z20.822 Contact with and (suspected) exposure to COVID-19; W25.XXXA Contact with sharp glass, initial encounter; Y93.89 Activity, other specified; Y92.89 Other specified places as the place of occurrence of the external cause; Y99.8 Other external cause status; Y90.9 Presence of alcohol in blood, level not specified
CPT/HCPCS: 99283; 87426; 80053; 85025; 36415; 80307; G0480

== ENCOUNTER 2022-11-08 01:10 | Inpatient (IN) | payer MEDICAID, OTHER ==
[~2022-11-08] VITALS: Ht 149.9 cm; Wt 52.2 kg
[2022-11-08] MEDS ORDERED: HALOPERIDOL LACTATE 5 MG/ML VIAL IM ONE (01:45)
[2022-11-08] MEDS ORDERED: LORazepam 2 MG/ML VIAL IM ONE (01:45)
[2022-11-08] MEDS ORDERED: DiphenhydrAMINE HCL 50 MG/ML VIAL IM ONE (01:45)
[2022-11-08] MEDS: LORazepam 2 MG/ML VIAL IM ONE ×2 (02:30→12:55)
[2022-11-08] MEDS: HALOPERIDOL LACTATE 5 MG/ML VIAL IM ONE ×2 (02:30→12:55)
[2022-11-08 12:13] LABS: BASOPHILS % (AUTO) 0.8 % (0.0-2.0); EOSINOPHILS % (AUTO) 0.7 % (1.0-6.0); HEMOGLOBIN 11.8 g/dL (12.0-16.0); LYMPHOCYTES # (AUTO) 2.5 K/uL (1.0-4.8); LYMPHOCYTES % (AUTO) 60.8 % (22.0-44.0); MEAN CORPUSCULAR HEMOGLOBIN 26.4 pg (26.0-34.0); MEAN CORPUSCULAR HGB CONC 31.8 G/dL (31.0-37.0); MEAN CORPUSCULAR VOLUME 83 fL (80-100); MONOCYTES # (AUTO) 1.4 K/uL (0.1-1.0); MONOCYTES % (AUTO) 33.7 % (2.0-9.0); NEUTROPHILS # (AUTO) 0.2 K/uL (1.8-7.7); PLATELET COUNT (AUTO) 351 K/uL (150-450); RED BLOOD CELL COUNT(AUTO) 4.45 MIL/uL (4.00-5.20); RED CELL DISTRIBUTION WIDTH 15.2 % (11.5-14.5); WHITE BLOOD COUNT (AUTO) 4.1 K/uL (4.5-11.0)
[2022-11-08 12:27] LABS: RBC MORPHOLOGY COMMENT NORMAL RBC MORPH
[2022-11-08 12:28] LABS: ALCOHOL, BLOOD (SERUM) < 3 mg/dL (0-10)
[2022-11-08 12:34] LABS: ANION GAP 9 mmol/L (8-16); CALCIUM, TOTAL 8.3 mg/dL (8.8-10.5); CARBON DIOXIDE 27 mmol/L (22-29); CHLORIDE 101 mmol/L (98-107); CREATININE 0.59 mg/dL (0.60-1.30); GLOMERULAR FILTR. RATE CALC > 60 mL/min (>60); GLUCOSE,RANDOM 90 mg/dL (70-110); POTASSIUM 3.4 mmol/L (3.5-5.1); SODIUM SERUM 137 mmol/L (136-145); UREA NITROGEN, BLOOD 5 mg/dL (7-18)
[2022-11-08 12:35] LABS: ALANINE AMINOTRANSFERASE 51 U/L (12-78); ALBUMIN 3.1 g/dL (3.4-5.0); ALKALINE PHOSPHATASE 67 U/L (46-116); ASPARTATE AMINOTRANSFERASE 55 U/L (15-37); BILIRUBIN,TOTAL 0.4 mg/dL (0.1-1.0); TOTAL PROTEIN, SERUM 6.6 g/dL (6.4-8.2)
[2022-11-08] MEDS ORDERED: CloNIDine HCL 0.1 MG TABLET PO PRN (13:45)
[2022-11-08] MEDS ORDERED: ACETAMINOPHEN 325 MG TABLET PO PRN (13:45)
[2022-11-08] MEDS ORDERED: MAG HYDROX/AL HYDROX/SIMETH ES 30 ML SUSPENSION UDCUP PO PRN (13:45)
[2022-11-08] MEDS ORDERED: LOPERAMIDE HCL 2 MG CAPSULE PO PRN (13:45)
[2022-11-08] MEDS ORDERED: DOCUSATE SODIUM 100 MG CAPSULE PO PRN (13:45)
[2022-11-08] MEDS ORDERED: PETROLATUM,WHITE 28 GM JELLY TP PRN (13:45)
[2022-11-08] MEDS ORDERED: MAGNESIUM HYDROXIDE SUSPENSION 30 ML UDCUP PO PRN (13:45)
[2022-11-08] MEDS ORDERED: GuaiFENesin/D-METHORPHAN [SUGAR-FREE] 200-20MG/10 ML SYRUP UDCUP PO PRN (13:45)
[2022-11-08 20:06] VITALS: BP 128/75; PULSE 90; RESP 18; TEMP 97.9; O2SAT 97
[2022-11-09 08:56] VITALS: BP 110/65; PULSE 103; RESP 18; TEMP 97.5; O2SAT 98
[2022-11-09 09:04] LABS: HEMOGLOBIN A1C 5.4 % (3.8-5.6)
[2022-11-09] MEDS: LORazepam 2 MG TABLET PO PRN (09:23)
[2022-11-09] MEDS: HALOPERIDOL 5 MG TABLET PO PRN (09:23)
[2022-11-09 09:27] LABS: CHOL/HDL RATIO 3.7 (3.9-5.7); THYROID STIMULATING HORMONE 0.1 uIU/mL (0.36-3.74)
[2022-11-09 09:43] VITALS: BP 110/65; PULSE 106; RESP 18; TEMP 97.5; O2SAT 98
[2022-11-09] MEDS: HydrOXYzine PAMOATE 25 MG CAPSULE PO SCH (16:13)
[2022-11-09] MEDS: GABAPENTIN 300 MG CAPSULE PO SCH (16:13)
[2022-11-09 20:00] VITALS: BP 146/82; PULSE 82; RESP 18; TEMP 97.6; O2SAT 98
[2022-11-10] MEDS: HALOPERIDOL 5 MG TABLET PO PRN (05:03)
[2022-11-10] MEDS: LORazepam 2 MG TABLET PO PRN (05:03)
[2022-11-10 08:05] VITALS: RESP 17
[2022-11-10] MEDS: GABAPENTIN 300 MG CAPSULE PO SCH ×3 (08:07→16:05)
[2022-11-10] MEDS: HydrOXYzine PAMOATE 25 MG CAPSULE PO SCH ×3 (08:07→16:05)
[2022-11-10] MEDS: SERTRALINE HCL 100 MG TABLET PO SCH (08:07)
[2022-11-10 20:07] VITALS: BP 137/87; PULSE 82; RESP 17; TEMP 98; O2SAT 99
[2022-11-11] MEDS: LORazepam 2 MG TABLET PO PRN ×2 (00:10→09:30)
[2022-11-11] MEDS: ZOLPIDEM TARTRATE 10 MG TABLET PO PRN (02:47)
[2022-11-11] MEDS: HALOPERIDOL 5 MG TABLET PO PRN ×3 (04:56→13:19)
[2022-11-11] MEDS: ONDANSETRON HCL 4 MG TABLET PO PRN ×2 (06:22→06:29)
[2022-11-11 08:14] VITALS: BP 116/74; PULSE 76; RESP 16; TEMP 97.9; O2SAT 95
[2022-11-11] MEDS: GABAPENTIN 300 MG CAPSULE PO SCH ×3 (08:44→16:08)
[2022-11-11] MEDS: HydrOXYzine PAMOATE 25 MG CAPSULE PO SCH ×3 (08:44→16:08)
[2022-11-11] MEDS: NICOTINE 14 MG/24 HOUR PATCH TD PRN (08:44)
[2022-11-11] MEDS: SERTRALINE HCL 100 MG TABLET PO SCH (08:44)
[2022-11-11 20:30] VITALS: BP 134/91; PULSE 81; RESP 18; TEMP 97.7; O2SAT 100
[2022-11-12] MEDS: IBUPROFEN 400 MG TABLET PO PRN (03:08)
[2022-11-12 03:09] VITALS: RESP 18
[2022-11-12] MEDS: LORazepam 2 MG TABLET PO PRN ×3 (03:21→17:06)
[2022-11-12] MEDS: HALOPERIDOL 5 MG TABLET PO PRN ×2 (03:21→09:07)
[2022-11-12 04:08] VITALS: RESP 18
[2022-11-12 08:06] VITALS: RESP 16
[2022-11-12] MEDS: NICOTINE 14 MG/24 HOUR PATCH TD PRN (09:07)
[2022-11-12] MEDS: HydrOXYzine PAMOATE 25 MG CAPSULE PO SCH ×3 (09:07→17:06)
[2022-11-12] MEDS: SERTRALINE HCL 100 MG TABLET PO SCH (09:07)
[2022-11-12] MEDS: GABAPENTIN 300 MG CAPSULE PO SCH ×3 (09:07→17:06)
[2022-11-12 20:00] VITALS: BP 134/86; PULSE 72; RESP 17; TEMP 98; O2SAT 97
[2022-11-12] MEDS: ZOLPIDEM TARTRATE 10 MG TABLET PO PRN (21:39)
[2022-11-13 02:46] VITALS: BP 134/80; PULSE 84; RESP 18; TEMP 98; O2SAT 97
[2022-11-13] MEDS: IBUPROFEN 400 MG TABLET PO PRN (02:48)
[2022-11-13] MEDS: LORazepam 2 MG TABLET PO PRN ×3 (02:48→16:25)
[2022-11-13] MEDS: ALBUTEROL SULFATE HFA 90 MCG/PUFF 8 GM INHALER IH PRN (06:38)
[2022-11-13 08:04] VITALS: BP 136/82; PULSE 100; RESP 18; TEMP 98; O2SAT 98
[2022-11-13] MEDS: SERTRALINE HCL 100 MG TABLET PO SCH (08:07)
[2022-11-13] MEDS: HydrOXYzine PAMOATE 25 MG CAPSULE PO SCH ×3 (08:07→16:25)
[2022-11-13] MEDS: GABAPENTIN 300 MG CAPSULE PO SCH ×3 (08:07→16:25)
[2022-11-13] MEDS: HALOPERIDOL 5 MG TABLET PO PRN (08:07)
[2022-11-14] MEDS: ZOLPIDEM TARTRATE 10 MG TABLET PO PRN (01:42)
[2022-11-14] MEDS: LORazepam 2 MG TABLET PO PRN ×2 (01:43→08:01)
[2022-11-14] MEDS ORDERED: -PHARMACY VACCINE NOTE- MISC ONE (04:15)
[2022-11-14] MEDS: ALBUTEROL SULFATE HFA 90 MCG/PUFF 8 GM INHALER IH PRN (07:06)
[2022-11-14] MEDS: HydrOXYzine PAMOATE 25 MG CAPSULE PO SCH ×3 (08:00→16:41)
[2022-11-14] MEDS: GABAPENTIN 300 MG CAPSULE PO SCH ×3 (08:00→16:41)
[2022-11-14] MEDS: HALOPERIDOL 5 MG TABLET PO PRN (08:01)
[2022-11-14] MEDS: SERTRALINE HCL 100 MG TABLET PO SCH (08:01)
[2022-11-14 08:36] VITALS: BP 120/76; PULSE 100; RESP 16; TEMP 97.6; O2SAT 98
[2022-11-14] MEDS ORDERED: HALOPERIDOL LACTATE 5 MG/ML VIAL IM ONE (08:45)
[2022-11-14] MEDS ORDERED: DiphenhydrAMINE HCL 50 MG/ML VIAL IM ONE (08:45)
[2022-11-14] MEDS ORDERED: LORazepam 2 MG/ML VIAL IM ONE (08:45)
[2022-11-15 04:59] VITALS: BP 87/60; PULSE 60; RESP 18; TEMP 97.8
[2022-11-15] MEDS: ALBUTEROL SULFATE HFA 90 MCG/PUFF 8 GM INHALER IH PRN (07:07)
[2022-11-15] MEDS: GABAPENTIN 300 MG CAPSULE PO SCH ×3 (08:02→16:26)
[2022-11-15] MEDS: HydrOXYzine PAMOATE 25 MG CAPSULE PO SCH ×3 (08:02→16:26)
[2022-11-15] MEDS: HALOPERIDOL 5 MG TABLET PO PRN ×2 (08:02→14:20)
[2022-11-15] MEDS: LORazepam 2 MG TABLET PO PRN ×2 (08:05→14:20)
[2022-11-15] MEDS: SERTRALINE HCL 100 MG TABLET PO SCH (08:28)
[2022-11-15 09:42] VITALS: BP 126/64; PULSE 104; RESP 17; TEMP 99.3; O2SAT 99
[2022-11-15 20:12] VITALS: RESP 17
[2022-11-16] MEDS: ZOLPIDEM TARTRATE 10 MG TABLET PO PRN (00:17)
[2022-11-16 04:30] VITALS: RESP 18
[2022-11-16] MEDS: IBUPROFEN 400 MG TABLET PO PRN (04:34)
[2022-11-16 05:34] VITALS: RESP 18
[2022-11-16 08:16] VITALS: BP 117/76; PULSE 85; RESP 16; TEMP 97.6; O2SAT 97
[2022-11-16] MEDS: HydrOXYzine PAMOATE 25 MG CAPSULE PO SCH ×3 (08:26→16:42)
[2022-11-16] MEDS: LORazepam 2 MG TABLET PO PRN (08:26)
[2022-11-16] MEDS: GABAPENTIN 300 MG CAPSULE PO SCH ×3 (08:26→16:42)
[2022-11-16] MEDS: HALOPERIDOL 5 MG TABLET PO PRN (08:27)
[2022-11-16] MEDS: SERTRALINE HCL 100 MG TABLET PO SCH (08:27)
[2022-11-16] MEDS ORDERED: HALOPERIDOL LACTATE 5 MG/ML VIAL IM ONE (08:45)
[2022-11-16] MEDS ORDERED: DiphenhydrAMINE HCL 50 MG/ML VIAL IM ONE (08:45)
[2022-11-16] MEDS ORDERED: LORazepam 2 MG/ML VIAL IM ONE (08:45)
[2022-11-16] MEDS: NICOTINE 14 MG/24 HOUR PATCH TD PRN (09:44)
[2022-11-16 20:00] VITALS: BP 105/73; PULSE 89; RESP 18; TEMP 98; O2SAT 97
[2022-11-17] MEDS: IBUPROFEN 400 MG TABLET PO PRN (02:46)
[2022-11-17] MEDS: ZOLPIDEM TARTRATE 10 MG TABLET PO PRN (02:46)
[2022-11-17] MEDS: ALBUTEROL SULFATE HFA 90 MCG/PUFF 8 GM INHALER IH PRN (06:47)
[2022-11-17] MEDS: HydrOXYzine PAMOATE 25 MG CAPSULE PO SCH ×3 (08:23→16:53)
[2022-11-17] MEDS: DIVALPROEX SODIUM 500 MG DR TABLET PO SCH ×2 (08:23→20:48)
[2022-11-17] MEDS: LITHIUM CARBONATE 300 MG CAPSULE PO SCH ×2 (08:23→20:48)
[2022-11-17] MEDS: GABAPENTIN 300 MG CAPSULE PO SCH ×3 (08:24→16:53)
[2022-11-17] MEDS: NICOTINE 14 MG/24 HOUR PATCH TD PRN (08:25)
[2022-11-17] MEDS: RisperiDONE 1 MG TABLET PO SCH ×2 (08:25→20:48)
[2022-11-17 08:39] VITALS: BP 124/79; PULSE 84; RESP 18; TEMP 97.9; O2SAT 98
[2022-11-17] MEDS: HALOPERIDOL 5 MG TABLET PO PRN ×2 (09:07→13:28)
[2022-11-17 20:12] VITALS: BP 99/60; PULSE 82; RESP 16; TEMP 97.7; O2SAT 95
[2022-11-18] MEDS: IBUPROFEN 400 MG TABLET PO PRN (03:58)
[2022-11-18] MEDS: HydrOXYzine PAMOATE 25 MG CAPSULE PO SCH ×3 (08:00→16:01)
[2022-11-18] MEDS: GABAPENTIN 300 MG CAPSULE PO SCH ×3 (08:00→16:01)
[2022-11-18] MEDS: RisperiDONE 1 MG TABLET PO SCH (08:00)
[2022-11-18] MEDS: DIVALPROEX SODIUM 500 MG DR TABLET PO SCH (08:00)
[2022-11-18] MEDS: LITHIUM CARBONATE 300 MG CAPSULE PO SCH (08:00)
[2022-11-18 08:15] VITALS: BP 123/78; PULSE 92; RESP 17; TEMP 98.2; O2SAT 99
[2022-11-18] MEDS ORDERED: DIVA-112 PO (16:49)
[2022-11-18] MEDS ORDERED: LITH300C3 PO (16:49)
[2022-11-18] MEDS ORDERED: RISP1TAB98 PO (16:50)
[2022-11-18] MEDS ORDERED: GABA-1181 PO (16:50)
[2022-11-18] MEDS ORDERED: HYDR-4808 PO (16:51)
== END 2022-11-18 17:31 | disposition home or self-care (01) | DRG 750 ==
LOC: EMS 01:14 → B3A 11:39
PROVIDERS: ADMIT Psychiatry & Neurology Psychiatry; ATTEND Psychiatry & Neurology Psychiatry
DX: F25.9 Schizoaffective disorder, unspecified (principal); R45.851 Suicidal ideations; F32.A Depression, unspecified; F17.210 Nicotine dependence, cigarettes, uncomplicated; E87.6 Hypokalemia; F19.10 Other psychoactive substance abuse, uncomplicated; I10 Essential (primary) hypertension; G43.909 Migraine, unspecified, not intractable, without status migrainosus; D64.9 Anemia, unspecified; Z79.899 Other long term (current) drug therapy; Z98.84 Bariatric surgery status; Z90.49 Acquired absence of other specified parts of digestive tract
CPT/HCPCS: 80053; 80061; 83036; 84443; 85025; 99291; G0480; J1200; J1630; J2060; J3535; Q0162